=== PATIENT | female | born 1945 | race Hispanic/Latino ===

== ENCOUNTER 2022-01-25 11:52 | Emergency (ER) | payer MEDICARE ==
--- NOTE | 2022-01-25 12:09 | Emergency Department Report ---
ED General Adult HPI - General Chief complaint: Dyspnea/Respdistress Stated complaint: FALL,DIARRHEA Time Seen by Provider: 01/25/22 12:00 Source: EMS Mode of arrival: Stretcher Limitations: Altered Mental Status - History of Present Illness Initial comments: Patient presents by ambulance secondary to fall with hip pain. EMS was called as the patient had fallen from a standing position. She did hit the door and landed on her right hip. She is complaining of right hip pain. There was a report of diarrhea, although the patient states that this is not a problem for her. She admits that she has had diarrhea but she is more concerned about the right hip pain. She states that she did not hit her head or lose consciousness. Family had reported that she did hit her head. Regardless, she is not anticoagulated. Patient denies headache or neck pain. She denies back pain. She has no chest or abdominal pain. Pain in the right hip is constant and worse with any kind of movement. Paramedics state that the patient seemed to be more tender in the right but they did not appreciate any deformity. - Related Data Previous Rx's Medication Instructions Recorded Last Taken Type Levothyroxine [Synthroid] 50 mcg PO QAM #30 tablet 02/13/15 Unknown Rx Metoprolol [Lopressor TAB] 25 mg PO BID #60 tablet 02/13/15 Unknown Rx amLODIPine [Norvasc] 5 mg PO DAILY #30 tab 02/13/15 Unknown Rx lisinopriL [Zestril TAB] 20 mg PO QDAY #30 tablet 02/13/15 Unknown Rx Allergies Allergy/AdvReac Type Severity Reaction Status Date / Time Penicillins Allergy Unknown Verified 02/13/15 11:34 ED Review of Systems ROS: Stated complaint: FALL,DIARRHEA Other details as noted in HPI Comment: All other systems reviewed and negative Constitutional: denies: fever Eyes: denies: vision change ENT: denies: throat pain Respiratory: denies: cough Cardiovascular: denies: chest pain Endocrine: denies: unexplained weight loss Gastrointestinal: as per HPI, diarrhea. denies: abdominal pain Genitourinary: denies: dysuria Musculoskeletal: as per HPI. denies: back pain Skin: denies: rash Neurological: denies: headache Hematological/Lymphatic: denies: easy bruising ED Past Medical Hx - Past Medical History Previous Medical History?: Yes Hx Hypertension: Yes Hx Dementia: Yes Additional medical history: hypothyroid. depression - Surgical History Additional Surgical History: hysterectomy - Family History Family history: hypertension - Social History Smoking Status: Never Smoker Substance Use Type: Alcohol - Medications Home Medications: Home Medications Medication Instructions Recorded Confirmed Last Taken Type Levothyroxine [Synthroid] 50 mcg PO QAM #30 tablet 02/13/15 Unknown Rx Metoprolol [Lopressor TAB] 25 mg PO BID #60 tablet 02/13/15 Unknown Rx amLODIPine [Norvasc] 5 mg PO DAILY #30 tab 02/13/15 Unknown Rx lisinopriL [Zestril TAB] 20 mg PO QDAY #30 tablet 02/13/15 Unknown Rx ED Physical Exam - General Limitations: Altered Mental Status (Chronic dementia), Other (Pulse ox noted and normal) General appearance: alert, in no apparent distress, other (Appears to be uncomfortable. Pleasantly confused) - Head Head exam: Present: atraumatic, normocephalic, normal inspection - Eye Eye exam: Present: normal appearance. Absent: EOMI - ENT ENT exam: Present: normal orophraynx, normal external ear exam - Neck Neck exam: Present: normal inspection. Absent: tenderness, meningismus - Respiratory Respiratory exam: Present: normal lung sounds bilaterally. Absent: respiratory distress - Cardiovascular Cardiovascular Exam: Present: regular rate, normal rhythm - GI/Abdominal GI/Abdominal exam: Present: soft. Absent: distended - Extremities Exam Extremities exam: Present: normal capillary refill, other (Diffuse tenderness with palpation over the right lateral hip. There is no obvious deformity. Leg is not shortened or rotated. She has good range of motion passively.) - Back Exam Back exam: Absent: CVA tenderness (R), CVA tenderness (L) - Neurological Exam Neurological exam: Present: alert, altered, CN II-XII intact. Absent: motor sensory deficit - Psychiatric Psychiatric exam: Present: normal affect, normal mood - Skin Skin exam: Present: warm, dry ED Course Vital Signs 01/25/22 01/25/22 11:57 12:48 Temperature 96.4 F L Pulse Rate 97 H Respiratory 16 Rate Blood Pressure 165/74 [Right] O2 Sat by Pulse 98 99 Oximetry - Reevaluation(s) Reevaluation #1: 01/25/22 12:09 EMS was met. X-rays were ordered. Reevaluation #2: 01/25/22 13:04 X-rays are noted and the patient was discharged. ED Medical Decision Making - Radiology Data Radiology results: report reviewed - Medical Decision Making Patient presented by ambulance with right hip pain after a fall. This was a ground-level fall. There is no evidence of hip fracture. She did not have suggestion of pelvis fracture. 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 She does not appear to be septic or toxic. She has had hip injuries before. Patient was treated symptomatically and referred. There was a family report that she had struck her head, but there was no loss of consciousness. She was not vomiting. She has no headache. There is no visible sign of head trauma. She is not anticoagulated. I do not believe CT is indicated at this time. Critical Care Time: No Critical care attestation.: If time is entered above; I have spent that time in minutes in the direct care of this critically ill patient, excluding procedure time. ED Disposition Clinical Impression: Fall Qualifiers: Encounter type: initial encounter Qualified Code(s): W19.XXXA - Unspecified fall, initial encounter Contusion of right hip Qualifiers: Encounter type: initial encounter Qualified Code(s): S70.01XA - Contusion of right hip, initial encounter Disposition: HOME / SELF CARE / HOMELESS Is pt being admited?: No Condition: Stable Instructions: Contusion, [id number], How to Use Cold Therapy, [id number] Additional Instructions: Apply ice to sore areas. Drink plenty of water. Return for problems. Follow- up with your regular doctor for recheck and further management. Referrals: JAMEL RESTREPO MD [Primary Care Provider] - 3-5 Days KAREEN DOWLING MD [Staff Physician] - 3-5 Days
--- NOTE | 2022-01-25 12:53 | XRay Report ---
RIGHT HIP 3 VIEWS INDICATION: fall. COMPARISON: None. IMPRESSION: No acute osseous or soft tissue abnormality. 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 Approximate 2 cm area of avascular necrosis in the superior femoral head is al so identified. If further evaluation is needed MRI could be obtained. Signer Name: Roberto Armstrong Jr, MD Signed: 01/25/2022 12:49 PM Workstation Name: [id number]
--- NOTE | 2022-01-25 14:15 | Cat Scan Report ---
CT HEAD WITHOUT CONTRAST INDICATION / CLINICAL INFORMATION: head injury on thinners. TECHNIQUE: Axial imaging performed from the skull apex through the skull base without the use of cont rast. Sagittal and coronal reformatted images. All CT scans at this location are performed using CT dose reduction for ALARA by means of automated exposure control. COMPARISON: None available. FINDINGS: CEREBRAL PARENCHYMA: No acute parenchymal abnormality is identified. There is moderate diffuse cortic al volume loss and mild nonspecific chronic white matter changes. No chronic infarct is identified. HEMORRHAGE: None. EXTRA-AXIAL SPACES: Normal in size and morphology for the patient's age. VENTRICULAR SYSTEM: Normal in size and morphology for the patient's age. MIDLINE SHIFT OR HERNIATION: None. CEREBELLUM / BRAINSTEM: No significant abnormality. CALVARIUM: No significant abnormality. ORBITS: Normal as visualized. PARANASAL SINUSES / MASTOID AIR CELLS: Normal as visualized. SOFT TISSUES of HEAD: No significant abnormality. ADDITIONAL FINDINGS: None. IMPRESSION: No acute intracranial abnormality. Volume loss and chronic white matter changes which appear appropri ate for this person's age. Signer Name: Roberto Armstrong Jr, MD Signed: 01/25/2022 2:10 PM Workstation Name: [id number]
[2022-01-25 15:38] VITALS: BP 158/72
== END 2022-01-25 15:40 | disposition home or self-care (01) ==
LOC: ED 11:52
DX: S70.01XA Contusion of right hip, initial encounter (principal); I10 Essential (primary) hypertension; F32.9 Major depressive disorder, single episode, unspecified; Z90.710 Acquired absence of both cervix and uterus; Z88.0 Allergy status to penicillin; Z79.899 Other long term (current) drug therapy; W18.39XA Other fall on same level, initial encounter; Y93.89 Activity, other specified; Y92.89 Other specified places as the place of occurrence of the external cause; Y99.8 Other external cause status
CPT/HCPCS: 70450; 99284

== ENCOUNTER 2022-05-05 04:25 | Observation (INO) | payer MEDICARE ==
[2022-05-05 05:33] LABS: Basophils # (Auto) 0.1 K/mm3 (0.0-0.1); Basophils % (Auto) 1.1 % (0.0-1.8); Eosinophils # (Auto) 0.2 K/mm3 (0.0-0.4); Eosinophils % (Auto) 1.8 % (0.0-4.3); Hematocrit 40.6 % (30.3-42.9); Hemoglobin 13.2 gm/dl (10.1-14.3); Lymphocytes # (Auto) 0.6 K/mm3 (1.2-5.4); Lymphocytes % (Auto) 6.6 % (13.4-35.0); Mean Corpuscular HGB Conc 32 % (30-34); Mean Corpuscular Volume 98 fl (79-97); Monocytes # (Auto) 0.5 K/mm3 (0.0-0.8); Monocytes % (Auto) 5.3 % (0.0-7.3); Platelet Count 547 K/mm3 (140-440); Red Blood Count 4.14 M/mm3 (3.65-5.03); Red Cell Distribution Width 14.4 % (13.2-15.2)
[2022-05-05 05:41] LABS: Blood Urea Nitrogen 23 mg/dL (7-17); Calcium 9.5 mg/dL (8.4-10.2); Hemolysis Index 3
[2022-05-05 05:54] LABS: BUN/Creatinine Ratio 58
--- NOTE | 2022-05-05 06:54 | Cat Scan Report ---
CT HEAD WITHOUT CONTRAST INDICATION / CLINICAL INFORMATION: Head injury. TECHNIQUE: CT head was performed without administration of intravenous contrast. All CT scans at this location are performed using CT dose reduction for ALARA by means of automated exposure control. COMPARISON: CT head 01/25/2022 FINDINGS: CEREBRAL HEMISPHERES: There is no evidence of large territorial infarction or significant abnormality of black-white matter differentiation. Ventricles within normal limits. No midline shift. Basal ciste rns patent. Bilateral basal ganglia calcifications. HEMORRHAGE: None. CEREBELLUM / BRAINSTEM: No significant abnormality. ORBITS: No significant abnormality. SOFT TISSUES: No significant abnormality. SKULL: No significant abnormality. PARANASAL SINUSES / MASTOID AIR CELLS: Normal as visualized. ADDITIONAL FINDINGS: None. IMPRESSION: 1. No acute intracranial abnormality. Signer Name: Mango Monte II, MD Signed: 05/05/2022 6:50 AM Workstation Name: [id number]
--- NOTE | 2022-05-05 07:00 | Cat Scan Report ---
CT CERVICAL SPINE WITHOUT CONTRAST INDICATION / CLINICAL INFORMATION: head injury, fall. TECHNIQUE: Axial CT images were obtained through the cervical spine. Sagittal and coronal reformatted images were produced. All CT scans at this location are performed using CT dose reduction for ALARA by means of automated exposure control. COMPARISON: None available. FINDINGS: MANDIBLE: No significant abnormality of the visualized mandible or TMJs. SKULL BASE: No significant abnormality of the skull base. CRANIOCERVICAL JUNCTION: No significant abnormality of the craniocervical junction. CERVICAL SPINE: Reversal of lordosis is demonstrated with anterolisthesis of C3 on C4 as well as C4 o n C5. Additionally at C4-5, there is partial fusion to fusion of the left facet articulation with the appearance suggesting prior perched facet. Spinous processes of C4-C5 are minimally widened and no i nflammatory stranding. There is severe central stenosis. Sclerotic focus of bone within the left almeida sverse process of C2. SOFT TISSUES: No significant abnormality of soft tissues or musculature. THYROID: No significant abnormality. UPPER CHEST: No significant abnormality of the visualized chest. ADDITIONAL FINDINGS: None. IMPRESSION: 1. No acute fracture. 2. The appearance of C4-5 suggests possible prior injury and prior perched facet with interval fusion . Residual anterolisthesis is demonstrated as well as minimal widening of the spinous processes of C4 and C5. No obvious acute ligamentous injury. If clinical concern for acute ligamentous injury is pre sent, MRI recommended for further evaluation. Signer Name: Mango Monte II, MD Signed: 05/05/2022 6:55 AM Workstation Name: [id number]
[2022-05-05] MEDS ORDERED: SODIUM CHLORIDE 0.9% 500 ML 500 ML IV ONE (07:09)
--- NOTE | 2022-05-05 07:50 | XRay Report ---
LEFT HIP 3 VIEW(S) INDICATION / CLINICAL INFORMATION: fall, hip pain, dementia COMPARISON: None available. FINDINGS: Inferior pubic ramus fracture on the left and possible parasymphyseal superior ramus fracture. The ra mus and symphysis otherwise overshadowed by stool. Left hip appears intact. No widened SI joints. Fla ttening of the superior right femoral head and loss of superior joint space with features of femoral acetabular impingement appear stable. IMPRESSION: 1. Fractures of the left pubic rami are suggested with fracture of the right pubic rami not excluded. CT recommended for further definition of injury. Signer Name: Mango Monte II, MD Signed: 05/05/2022 7:46 AM Workstation Name: [id number]
[2022-05-05 08:04] LABS: Creatine Kinase MB 1.8 ng/mL (0.0-4.0)
[2022-05-05] MEDS ORDERED: TETANUS,DIPH,PERTUSS(ACELL) VACCINE 0.5 ML SYRINGE IM ONE (08:10)
--- NOTE | 2022-05-05 08:10 | Emergency Department Report ---
ED Fall HPI - General Chief Complaint: Head Injury Stated Complaint: GENERALIZED WEAKNESS Time Seen by Provider: 05/05/22 06:34 Source: patient, old records reviewed Mode of arrival: Stretcher Limitations: Other (d) - History of Present Illness Initial Comments: 77-year-old female with a past medical history of dementia, hypertension, hypothyroidism, depression presents to the hospital from home status post fall. Patient presents with a scalp hematoma to the occipital. She cannot provide any details regarding her fall. She is alert and oriented to self, place, but not to year. She cannot recall what happened and how she fell. She complains of pain only to area of scalp impact. She states she has been eating and drinking appropriately without chest pain, shortness of breath, nausea, vomiting, or diarrhea. She complains of ongoing left hip pain. Patient states she lives alone, walks unassisted, and her daughter comes to check on her and assist with her care - Related Data Previous Rx's Medication Instructions Recorded Last Taken Type Levothyroxine [Synthroid] 50 mcg PO QAM #30 tablet 02/13/15 Unknown Rx Metoprolol [Lopressor TAB] 25 mg PO BID #60 tablet 02/13/15 Unknown Rx amLODIPine [Norvasc] 5 mg PO DAILY #30 tab 02/13/15 Unknown Rx lisinopriL [Zestril TAB] 20 mg PO QDAY #30 tablet 02/13/15 Unknown Rx Allergies Allergy/AdvReac Type Severity Reaction Status Date / Time Penicillins Allergy Unknown Verified 02/13/15 11:34 ED Review of Systems ROS: Stated complaint: GENERALIZED WEAKNESS Other details as noted in HPI Comment: All other systems reviewed and negative ED Past Medical Hx - Past Medical History Previous Medical History?: Yes Hx Hypertension: Yes Hx Dementia: Yes Additional medical history: hypothyroid. depression - Surgical History Past Surgical History?: Yes Additional Surgical History: hysterectomy - Social History Smoking Status: Current Every Day Smoker Substance Use Type: None - Medications Home Medications: Home Medications Medication Instructions Recorded Confirmed Last Taken Type Levothyroxine [Synthroid] 50 mcg PO QAM #30 tablet 02/13/15 Unknown Rx Metoprolol [Lopressor TAB] 25 mg PO BID #60 tablet 02/13/15 Unknown Rx amLODIPine [Norvasc] 5 mg PO DAILY #30 tab 02/13/15 Unknown Rx lisinopriL [Zestril TAB] 20 mg PO QDAY #30 tablet 02/13/15 Unknown Rx ED Physical Exam - General Limitations: No Limitations - Other Other exam information: General: No acute distress Head: Posterior scalp hematoma without laceration Eyes: normal appearance ENT: Moist mucous membranes Neck: Normal appearance, no midline tenderness Chest: Clear to auscultation bilaterally CV: Regular rate and rhythm Abdomen: Soft, normal bowel sounds, nontender, nondistended, no rebound or guarding Back: Normal inspection Extremity: Normal inspection, full range of motion. Patient complains with left hip pain rolling to left side. Full range of motion of left hip with passive movement with minimum pain. Full range of motion of right hip. Neuro: Alert O x 2 (not to year), no facial asymmetry, speech clear, no gross motor sensory deficit Psych: Appropriate behavior Skin: No rash ED Course Vital Signs 05/05/22 05/05/22 05/05/22 04:30 07:03 07:31 Temperature 98 F Pulse Rate 99 H 83 Respiratory 18 11 L Rate Blood Pressure 132/76 152/77 O2 Sat by Pulse 99 100 98 Oximetry 05/05/22 05/05/22 05/05/22 07:45 08:01 08:15 Temperature Pulse Rate 80 82 83 Respiratory 17 15 18 Rate Blood Pressure 148/66 138/69 138/69 O2 Sat by Pulse 94 99 94 Oximetry 05/05/22 05/05/22 05/05/22 08:31 08:46 10:02 Temperature Pulse Rate 81 82 79 Respiratory 14 15 19 Rate Blood Pressure 138/69 138/69 138/69 O2 Sat by Pulse 96 97 Oximetry 05/05/22 10:16 Temperature Pulse Rate 70 Respiratory 13 Rate Blood Pressure 127/67 O2 Sat by Pulse Oximetry - Consultations Consultation #1: 05/05/22 10:35 case d/w DR calabrese ortho, no surgery recommended at this time, weightbearing as tolerated and pain management. Consult ordered since patient will be in the ED Medical Decision Making - Lab Data Result diagrams: 05/05/22 05:10 05/05/22 05:10 Lab Results 05/05/22 05/05/22 05/05/22 Range/Units 05:10 05:10 07:14 WBC 9.8 (4.5-11.0) K/mm3 RBC 4.14 (3.65-5.03) M/mm3 Hgb 13.2 (10.1-14.3) gm/dl Hct 40.6 (30.3-42.9) % MCV 98 H (79-97) fl MCH 32 (28-32) pg MCHC 32 (30-34) % RDW 14.4 (13.2-15.2) % Plt Count 547 H (140-440) K/mm3 Lymph % (Auto) 6.6 L (13.4-35.0) % [place] % (Auto) 5.3 (0.0-7.3) % Eos % (Auto) 1.8 (0.0-4.3) % Baso % (Auto) 1.1 (0.0-1.8) % Lymph # (Auto) 0.6 L (1.2-5.4) K/mm3 [place] # (Auto) 0.5 (0.0-0.8) K/mm3 Eos # (Auto) 0.2 (0.0-0.4) K/mm3 Baso # (Auto) 0.1 (0.0-0.1) K/mm3 Seg Neutrophils % 85.2 H (40.0-70.0) % Seg Neutrophils # 8.4 H (1.8-7.7) K/mm3 Sodium 139 (137-145) mmol/L Potassium 4.1 (3.6-5.0) mmol/L Chloride 100.8 (98-107) mmol/L Carbon Dioxide 25 (22-30) mmol/L Anion Gap 17 mmol/L BUN 23 H (7-17) mg/dL Creatinine 0.4 L (0.6-1.2) mg/dL Estimated GFR > 60 ml/min BUN/Creatinine Ratio 58 % Glucose 101 H (65-100) mg/dL Calcium 9.5 (8.4-10.2) mg/dL Total Creatine Kinase 31 (30-135) units/L CK-MB (CK-2) 1.8 (0.0-4.0) ng/mL CK-MB (CK-2) Rel Index 5.8 H (0-4) Troponin T < 0.010 (0.00-0.029) ng/mL Urine Color (Yellow) Urine Turbidity (Clear) Urine pH (5.0-7.0) Ur Specific [place] (1.003-1.030) Urine Protein (Negative) mg/dL Urine Glucose (UA) (Negative) mg/dL Urine Ketones (Negative) mg/dL Urine Blood (Negative) Urine Nitrite (Negative) Urine Bilirubin (Negative) Urine Urobilinogen (<2.0) mg/dL Ur Leukocyte Esterase (Negative) Urine WBC (Auto) (0.0-6.0) /HPF Urine RBC (Auto) (0.0-6.0) /HPF U Epithel Cells (Auto) (0-13.0) /HPF Urine Mucus /HPF 05/05/22 Range/Units Unknown WBC (4.5-11.0) K/mm3 RBC (3.65-5.03) M/mm3 Hgb (10.1-14.3) gm/dl Hct (30.3-42.9) % MCV (79-97) fl MCH (28-32) pg MCHC (30-34) % RDW (13.2-15.2) % Plt Count (140-440) K/mm3 Lymph % (Auto) (13.4-35.0) % [place] % (Auto) (0.0-7.3) % Eos % (Auto) (0.0-4.3) % Baso % (Auto) (0.0-1.8) % Lymph # (Auto) (1.2-5.4) K/mm3 [place] # (Auto) (0.0-0.8) K/mm3 Eos # (Auto) (0.0-0.4) K/mm3 Baso # (Auto) (0.0-0.1) K/mm3 Seg Neutrophils % (40.0-70.0) % Seg Neutrophils # (1.8-7.7) K/mm3 Sodium (137-145) mmol/L Potassium (3.6-5.0) mmol/L Chloride (98-107) mmol/L Carbon Dioxide (22-30) mmol/L Anion Gap mmol/L BUN (7-17) mg/dL Creatinine (0.6-1.2) mg/dL Estimated GFR ml/min BUN/Creatinine Ratio % Glucose (65-100) mg/dL Calcium (8.4-10.2) mg/dL Total Creatine Kinase (30-135) units/L CK-MB (CK-2) (0.0-4.0) ng/mL CK-MB (CK-2) Rel Index (0-4) Troponin T (0.00-0.029) ng/mL Urine Color Yellow (Yellow) Urine Turbidity Clear (Clear) Urine pH 5.0 (5.0-7.0) Ur Specific [place] 1.017 (1.003-1.030) Urine Protein <15 mg/dl (Negative) mg/dL Urine Glucose (UA) Neg (Negative) mg/dL Urine Ketones 20 (Negative) mg/dL Urine Blood Neg (Negative) Urine Nitrite Neg (Negative) Urine Bilirubin Neg (Negative) Urine Urobilinogen 4.0 (<2.0) mg/dL Ur Leukocyte Esterase Neg (Negative) Urine WBC (Auto) 2.0 (0.0-6.0) /HPF Urine RBC (Auto) < 1.0 (0.0-6.0) /HPF U Epithel Cells (Auto) 1.0 (0-13.0) /HPF Urine Mucus Few /HPF - EKG Data -: EKG Interpreted by Me (Right bundle branch) EKG shows normal: sinus rhythm, ST-T waves Rate: normal - EKG Data When compared to previous EKG there are: changes noted - Radiology Data Radiology results: report reviewed CT HEAD WITHOUT CONTRAST INDICATION / CLINICAL INFORMATION: Head injury. TECHNIQUE: CT head was performed without administration of intravenous contrast. All CT scans at this location are performed using CT dose reduction for Stealth10RA by means of automated exposure control. COMPARISON: CT head 01/25/2022 FINDINGS: CEREBRAL HEMISPHERES: There is no evidence of large territorial infarction or significant abnormality of black-white matter differentiation. Ventricles within normal limits. No midline shift. Basal cisterns patent. Bilateral basal ganglia calcifications. HEMORRHAGE: None. CEREBELLUM / BRAINSTEM: No significant abnormality. ORBITS: No significant abnormality. SOFT TISSUES: No significant abnormality. SKULL: No significant abnormality. PARANASAL SINUSES / MASTOID AIR CELLS: Normal as visualized. ADDITIONAL FINDINGS: None. IMPRESSION: 1. No acute intracranial abnormality. CT CERVICAL SPINE WITHOUT CONTRAST INDICATION / CLINICAL INFORMATION: head injury, fall. TECHNIQUE: Axial CT images were obtained through the cervical spine. Sagittal and coronal reformatted images were produced. All CT scans at this location are performed u sing CT dose reducti on for ALARA by means of automated exposure control. COMPARISON: None available. FINDINGS: MANDIBLE: No significant abnormality of the visualized mandible or TMJs. SKULL BASE: No significant abnormality of the skull base. CRANIOCERVICAL JUNCTION: No significant abnormality of the craniocervical junction. CERVICAL SPINE: Reversal of lordosis is demonstrated with anterolisthesis of C3 on C4 as well as C4 on C5. Additionally at C4-5, there is partial fusion to fusion of the left facet articulation with the appearance suggesting prior perched facet. Spinous processes of C4-C5 are minimally widened and no inflammatory stranding. There is severe central stenosis. Sclerotic focus of bone within the left transverse process of C2. SOFT TISSUES: No significant abnormality of soft tissues or musculature. THYROID: No significant abnormality. UPPER CHEST: No significant abnormality of the visualized chest. ADDITIONAL FINDINGS: None. IMPRESSION: 1. No acute fracture. 2. The appearance of C4-5 suggests possible prior injury and prior perched facet with interval fusion. Residual anterolisthesis is demonstrated as well as minimal widening of the spinous processes of C4 and C5. No obvious acute ligamentous injury. If clinical concern for acute ligamentous injury is present, MRI recommended for further evaluation. LEFT HIP 3 VIEW(S) INDICATION / CLINICAL INFORMATION: fall, hip pain, dementia COMPARISON: None available. FINDINGS: Inferior pubic ramus fracture on the left and possible parasymphyseal superior ramus fracture. The ramus and symphysis otherwise overshadowed by stool. Left hip appears intact. No widened SI joints. Flattening of the superior right femoral head and loss of superior joint space with features of femoral acetabular impingement appear stable. IMPRESSION: 1. Fractures of the left pubic rami are suggested with fracture of the right pubic rami not excluded. CT recommended for further definition of injury. CT pelvis wo con INDICATION / CLINICAL INFORMATION: fallk injury. TECHNIQUE: Axial coronal and sagittal images All CT scans at this location are performed using CT dose reduction for ALARA by means of automated exposure control. COMPARISON: None available. FINDINGS: Diffuse osteopenia seen throughout. There are fracture. The sacrum bilaterally with mildly displaced fractures throughout the sacral alar and throughout the sacrum. Extension to the SI joints seen right greater than left. Advanced degenerative change within the right hip with significant joint space narrowing. Fractures of the superior and inferior pubic rami with diffuse fracture deformity throughout the pubic symphysis thickening of the distal sigmoid colon and rectal wall. IMPRESSION: 1. Diffuse fracture. The sacral alar with extension into the SI joints consistent with significant sacral insufficiency type fractures with displacement 2. Bilateral inferior and superior pubic rami fractures with coronary fracture deformity throughout the pubic symphysis. Advanced degenerative change throughout the pubic symphysis 3. Advanced degenerative change in lower lumbar spine 4. Marked thickening of the distal sigmoid colon and rectal wall. Clinical correlation and follow- up. CT lumbar spine wo con INDICATION / CLINICAL INFORMATION: 77 years Female; fallk injury. TECHNIQUE: Axial CT images of the lumbar spine were obtained. Sagittal and coronal reformatted images were produced. All CT scans at this location are performed using CT dose reduction for ALARA by means of automated exposure control. COMPARISON: None available. FINDINGS: POST-SURGICAL CHANGES: None. ALIGNMENT: Significant levoscoliosis seen with apex at L3-4. VERTEBRAE: Significant, bilateral sacral insufficiency type fractures are identified-left more prominent than right. Significant comminution seen, particularly in the left sacral alar regions There is also a fracture at the S2/S3 region of the sacrum in the midline with 3 mm of displacement seen along the anterior sacral wall. Note, the posterior sacral wall of this region is largely intact. Superior endplate compression seen at L1 Modic type III endplate changes seen rightward of midline at L3-4 and along the superior endplate of L1 leftward of midline. [id number] ANALYSIS: L1-2: Perhaps minimal disc bulge. Small foraminal disc protrusion on the left. No significant sequela. L2-3: Mild to moderate disc bulge and moderate facet hypertrophy. Mild to moderate canal narrowing. Moderate foraminal narrowing on the right. L3-4: Mild to moderate disc bulge and moderate facet hypertrophy on the right. Mild on the left. Mild to moderate canal narrowing. L4-5: Moderate disc bulge. Moderate to marked facet hypertrophy on the left and moderate on the right. Ligamentum flavum hypertrophy. High-grade canal and subarticular zone narrowing suspected. Moderate foraminal narrowing bilaterally, greater on the left. L5-S1: Mild disc bulge and/or spondylosis. Moderate to marked facet hypertrophy on the left and [id number] on the right. Moderate canal and left subarticular zone narrowing. Moderate osseous foraminal narrowing on the left with encroachment upon and mild flattening of the left L5 nerve. PARASPINAL SOFT TISSUES: No significant abnormality. ADDITIONAL FINDINGS: None. IMPRESSION: 1. Multiple, severe sacral fractures identified, as described above. 2. Superior endplate compression injury suggested at L1 leftward of midline. 3. Significant, multilevel degenerative changes as described above. Most marked findings appear to be at L4-5, followed by L5-S1. Please correlate with dermatomal distribution of patient's symptoms, if present. - Medical Decision Making 77-year-old female presents to the hospital with unwitnessed fall. Circumstances surrounding fall unavailable and patient cannot recall doing to dementia. It is unclear if patient had syncope or near syncopal episode. Imaging in the ED identified multiple pelvic fractures. Case discussed with orthopedic surgeon who does not require surgery at this time. Consult ordered. Patient will be admitted to the hospitalist service for further treatment and management such as safe discharge planning life support, physical therapy, pain management, and orthopedic consultation. Patient will be admitted to telemetry since it is unclear if patient had a cardiac event as the cause of fall/near syncope. IV fluids initiated for mild dehydration as indicated by elevated BUN to creatinine ratio. Other labs including urine are unremarkable. tetanus ordered Critical Care Time: No Critical care attestation.: If time is entered above; I have spent that time in minutes in the direct care of this critically ill patient, excluding procedure time. ED Disposition Clinical Impression: Fall, Closed head injury, Scalp hematoma, Pelvic fracture, Dementia Disposition: ADMITTED INPATIENT Is pt being admited?: Yes Does the pt Need Aspirin: No Condition: Stable Time of Disposition: 10:35 (admit to hospitalist no multani)
--- NOTE | 2022-05-05 09:19 | XRay Report ---
CHEST 1 VIEW 05/05/2022 7:27 AM INDICATION / CLINICAL INFORMATION: fall, dementia. COMPARISON: None available. FINDINGS: SUPPORT DEVICES: None. HEART / MEDIASTINUM: No significant abnormality. LUNGS / PLEURA: No significant pulmonary or pleural abnormality. No pneumothorax. ADDITIONAL FINDINGS: No significant additional findings. IMPRESSION: 1. No acute findings. Signer Name: Angelo Winston MD Signed: 05/05/2022 9:14 AM Workstation Name: [id number]
--- NOTE | 2022-05-05 09:19 | Cat Scan Report ---
CT pelvis wo con INDICATION / CLINICAL INFORMATION: fallk injury. TECHNIQUE: Axial coronal and sagittal images All CT scans at this location are performed using CT dose reduction for ALARA by means of automated exposure control. COMPARISON: None available. FINDINGS: Diffuse osteopenia seen throughout. There are fracture. The sacrum bilaterally with mildly displaced fractures throughout the sacral alar and throughout the sacrum. Extension to the SI joints seen right greater than left. Advanced degenerative change within the right hip with significant joint space na rrowing. Fractures of the superior and inferior pubic rami with diffuse fracture deformity throughout the pubic symphysis thickening of the distal sigmoid colon and rectal wall. IMPRESSION: 1. Diffuse fracture. The sacral alar with extension into the SI joints consistent with significant sa cral insufficiency type fractures with displacement 2. Bilateral inferior and superior pubic rami fractures with coronary fracture deformity throughout t he pubic symphysis. Advanced degenerative change throughout the pubic symphysis 3. Advanced degenerative change in lower lumbar spine 4. Marked thickening of the distal sigmoid colon and rectal wall. Clinical correlation and follow-up. Signer Name: Angelo Winston MD Signed: 05/05/2022 9:14 AM Workstation Name: [id number]
--- NOTE | 2022-05-05 09:26 | Cat Scan Report ---
CT lumbar spine wo con INDICATION / CLINICAL INFORMATION: 77 years Female; fallk injury. TECHNIQUE: Axial CT images of the lumbar spine were obtained. Sagittal and coronal reformatted images were prod uced. All CT scans at this location are performed using CT dose reduction for ALARA by means of autom ated exposure control. COMPARISON: None available. FINDINGS: POST-SURGICAL CHANGES: None. ALIGNMENT: Significant levoscoliosis seen with apex at L3-4. VERTEBRAE: Significant, bilateral sacral insufficiency type fractures are identified-left more promin ent than right. Significant comminution seen, particularly in the left sacral alar regions There is a lso a fracture at the S2/S3 region of the sacrum in the midline with 3 mm of displacement seen along the anterior sacral wall. Note, the posterior sacral wall of this region is largely intact. Superior endplate compression seen at L1 Modic type III endplate changes seen rightward of midline at L3-4 and along the superior endplate of L1 leftward of midline. [id number] ANALYSIS: L1-2: Perhaps minimal disc bulge. Small foraminal disc protrusion on the left. No significant sequel a. L2-3: Mild to moderate disc bulge and moderate facet hypertrophy. Mild to moderate canal narrowing. Moderate foraminal narrowing on the right. L3-4: Mild to moderate disc bulge and moderate facet hypertrophy on the right. Mild on the left. Mil d to moderate canal narrowing. L4-5: Moderate disc bulge. Moderate to marked facet hypertrophy on the left and moderate on the righ t. Ligamentum flavum hypertrophy. High-grade canal and subarticular zone narrowing suspected. Moderat e foraminal narrowing bilaterally, greater on the left. L5-S1: Mild disc bulge and/or spondylosis. Moderate to marked facet hypertrophy on the left and mild -to-moderate on the right. Moderate canal and left subarticular zone narrowing. Moderate osseous fora berna narrowing on the left with encroachment upon and mild flattening of the left L5 nerve. PARASPINAL SOFT TISSUES: No significant abnormality. ADDITIONAL FINDINGS: None. IMPRESSION: 1. Multiple, severe sacral fractures identified, as described above. 2. Superior endplate compression injury suggested at L1 leftward of midline. 3. Significant, multilevel degenerative changes as described above. Most marked findings appear to be at L4-5, followed by L5-S1. Please correlate with dermatomal distribution of patient's symptoms, if present. Signer Name: Sandeep Umana MD, III Signed: 05/05/2022 9:22 AM Workstation Name: [email or web address]
[2022-05-05 09:28] LABS: Bilirubin,Urine NEG (Negative); Blood,Urine NEG (Negative); Color,Urine Yellow (Yellow); Protein,Urine <15 mg/dL mg/dL (Negative)
[2022-05-05 09:30] LABS: Mucus,Urine FEW /HPF; RBC,Urine < 1.0 /HPF (0.0-6.0)
[2022-05-05] MEDS ORDERED: SODIUM CHLORIDE 0.9% 500 ML 500 ML ONE (10:08)
[2022-05-05] MEDS ORDERED: MORPHINE 4 MG/1 ML INJ IV ONE (10:13)
[2022-05-05] MEDS ORDERED: ONDANSETRON 4 MG/2 ML INJ IV ONE (10:13)
[2022-05-05] MEDS ORDERED: ONDANSETRON 4 MG/2 ML INJ IV PRN ×2 (10:39→12:00)
[2022-05-05] MEDS ORDERED: ACETAMINOPHEN 325 MG TAB PO PRN ×2 (10:39→12:00)
[2022-05-05] MEDS ORDERED: MORPHINE 2 MG/1 ML INJ IV PRN (10:39)
--- NOTE | 2022-05-05 10:48 | Electrocardiograph Report ---
[facility] Test Date: 2022-05-05 Test Time: 04:55:28 Pat Name: BAO GEE Department: Room: Gender: F Language Path: ER : 1945 Requested By: SHEA KHAN Order Number: [id number] Reading MD: James Duenas Measurements Intervals [place] Rate: 83 P: [place]: QRS: 28 QRSD: 158 T: 11 QT: 429 QTc: 505 Interpretive Statements Normal sinus rhythm Right bundle branch block No previous ECG available for comparison Electronically Signed On 05-05-2022 10:48:02 EDT by James Duenas
--- NOTE | 2022-05-05 10:53 | Electrocardiograph Report ---
[facility] Test Date: 2022-05-05 Test Time: 09:51:54 Pat Name: BAO GEE Department: Room: Gender: F Pediatric Np: BRYON : 1945 Requested By: SHEA KHAN Order Number: [id number] Reading MD: James Duenas Measurements Intervals [place] Rate: 72 P: 39 [place]: 201 QRS: 30 QRSD: 158 T: 19 QT: 454 QTc: 499 Interpretive Statements Sinus rhythm Right bundle branch block Compared to ECG 05/05/2022 04:55:28 No significant change Electronically Signed On 05-05-2022 10:53:29 EDT by James Duenas
--- NOTE | 2022-05-05 11:44 | History and Physical Report ---
History of Present Illness History of present illness: HPI: 77-year-old with past medical history of hypertension, dementia, hypothyroidism, depression presenting to the hospital status post fall at home. Patient denied recalling fall. She states that she is unsure if she passed out prior to the fall. She denied any active chest pain, nausea, vomiting, shortness of breath, abdominal pain, peripheral nerve pain. She does endorse head tenderness from her scalp hematoma as well as right hip tenderness. Patient responding to questions appropriately. Follows commands appropriately. Apparently patient does live at home independently and has daughter who checks up on her from time to time. Remainder of ROS negative except for stated above Had a fall on 04/29 when she fell out of bed, seen at [facility]. She was discharged with a wheelchair. Earlier this morning the patient came out bed, got in wheel chair and tried to get up and fell again hitting her head. Patient was here back in January of this year for fall as well. 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 She was discharged from the emergency room with recommendation to follow-up outpatient with imaging findings as it was believed to be a chronic change identified. I discussed at length with the patient's daughter. Daughter stated that she and her granddaughter look after the patient. They would prefer the patient return home and state that they are able to care for her. PMHx: Hypertension, dementia, hypothyroidism, depression PSHx: Hysterectomy FHx: Reviewed noncontributory SHx: Tobacco use-every day smoker ETOH Use-denies Recreational Drug Use-denies lives home with daughter and granddaughter Kaylynn Benitez (daughter) [phone] Medications and Allergies Allergies Allergy/AdvReac Type Severity Reaction Status Date / Time Penicillins Allergy Unknown Verified 02/13/15 11:34 Home Medications Medication Instructions Recorded Confirmed Last Taken Type Levothyroxine [Synthroid] 50 mcg PO QAM #30 tablet 02/13/15 Unknown Rx Metoprolol [Lopressor TAB] 25 mg PO BID #60 tablet 02/13/15 Unknown Rx amLODIPine [Norvasc] 5 mg PO DAILY #30 tab 02/13/15 Unknown Rx lisinopriL [Zestril TAB] 20 mg PO QDAY #30 tablet 02/13/15 Unknown Rx Active Meds: Active Medications Acetaminophen (Acetaminophen 325 Mg Tab) 650 mg PO Q4H PRN PRN Reason: Pain MILD(1-3)/Fever >100.5/ROMERO Ondansetron HCl (Ondansetron 4 Mg/2 Ml Inj) 4 mg IV Q8H PRN PRN Reason: Nausea And Vomiting Oxycodone/Acetaminophen (Oxycodone /Acetaminophen 5-325mg Tab) 1 tab PO Q6H PRN PRN Reason: Pain, Moderate (4-6) Sodium Chloride (Sodium Chloride 0.9% 10 Ml Flush Syringe) 10 ml IV BID MARC Sodium Chloride (Sodium Chloride 0.9% 10 Ml Flush Syringe) 10 ml IV PRN PRN PRN Reason: LINE FLUSH Sodium Chloride (Sodium Chloride 0.9% 10 Ml Flush Syringe) 10 ml IV BID MARC Sodium Chloride (Sodium Chloride 0.9% 10 Ml Flush Syringe) 10 ml IV PRN PRN PRN Reason: LINE FLUSH Exam - Physical Exam Narrative exam: Physical Exam: VITAL SIGNS: Reviewed. GENERAL: The patient appears normally developed, Vital signs as documented. Elderly disheveled female HEAD: Scalp hematoma noted. EYES: Pupils are equal. Extraocular motions intact. EARS: Hearing grossly intact. MOUTH: Poor oral hygiene/dentition. NECK: No adenopathy, no JVD. CHEST: Chest with clear breath sounds bilaterally. No wheezes, rales, or rhonchi. CARDIAC: Regular rate and rhythm. S1 and S2, without murmurs, gallops, or rubs. VASCULAR: No Edema. Peripheral pulses normal and equal in all extremities. ABDOMEN: Soft, non tender and non distended. No rebound or guarding, and no masses palpated. Bowel Sounds normal. MUSCULOSKELETAL: Pain in right hip. NEUROLOGIC EXAM: Alert and oriented x 3. no focal sensory or strength deficits. PSYCHIATRIC: Mild memory impairment noted. SKIN: detail exam as documented in skin assessment - Constitutional Vitals: Temp Pulse Resp BP Pulse Ox 98 F 70 13 127/67 97 05/05/22 04:30 05/05/22 10:16 05/05/22 10:16 05/05/22 10:16 05/05/22 08:46 HEART Score - HEART Score Troponin: Troponin T < 0.010 ng/mL (0.00-0.029) 05/05/22 07:14 Results - Labs CBC & Chem 7: 05/05/22 05:10 05/05/22 05:10 Labs: Laboratory Last Values WBC 9.8 K/mm3 (4.5-11.0) 05/05/22 05:10 RBC 4.14 M/mm3 (3.65-5.03) 05/05/22 05:10 Hgb 13.2 gm/dl (10.1-14.3) 05/05/22 05:10 Hct 40.6 % (30.3-42.9) 05/05/22 05:10 MCV 98 fl (79-97) H 05/05/22 05:10 MCH 32 pg (28-32) 05/05/22 05:10 MCHC 32 % (30-34) 05/05/22 05:10 RDW 14.4 % (13.2-15.2) 05/05/22 05:10 Plt Count 547 K/mm3 (140-440) H 05/05/22 05:10 Lymph % (Auto) 6.6 % (13.4-35.0) L 05/05/22 05:10 [place] % (Auto) 5.3 % (0.0-7.3) 05/05/22 05:10 Eos % (Auto) 1.8 % (0.0-4.3) 05/05/22 05:10 Baso % (Auto) 1.1 % (0.0-1.8) 05/05/22 05:10 Lymph # (Auto) 0.6 K/mm3 (1.2-5.4) L 05/05/22 05:10 [place] # (Auto) 0.5 K/mm3 (0.0-0.8) 05/05/22 05:10 Eos # (Auto) 0.2 K/mm3 (0.0-0.4) 05/05/22 05:10 Baso # (Auto) 0.1 K/mm3 (0.0-0.1) 05/05/22 05:10 Seg Neutrophils % 85.2 % (40.0-70.0) H 05/05/22 05:10 Seg Neutrophils # 8.4 K/mm3 (1.8-7.7) H 05/05/22 05:10 Sodium 139 mmol/L (137-145) 05/05/22 05:10 Potassium 4.1 mmol/L (3.6-5.0) 05/05/22 05:10 Chloride 100.8 mmol/L (98-107) 05/05/22 05:10 Carbon Dioxide 25 mmol/L (22-30) 05/05/22 05:10 Anion Gap 17 mmol/L 05/05/22 05:10 BUN 23 mg/dL (7-17) H 05/05/22 05:10 Creatinine 0.4 mg/dL (0.6-1.2) L 05/05/22 05:10 Estimated GFR > 60 ml/min 05/05/22 05:10 BUN/Creatinine Ratio 58 % 05/05/22 05:10 Glucose 101 mg/dL (65-100) H 05/05/22 05:10 Calcium 9.5 mg/dL (8.4-10.2) 05/05/22 05:10 Total Creatine Kinase 31 units/L (30-135) 05/05/22 07:14 CK-MB (CK-2) 1.8 ng/mL (0.0-4.0) 05/05/22 07:14 CK-MB (CK-2) Rel Index 5.8 (0-4) H 05/05/22 07:14 Troponin T < 0.010 ng/mL (0.00-0.029) 05/05/22 07:14 Urine Color Yellow (Yellow) 05/05/22 Unknown Urine Turbidity Clear (Clear) 05/05/22 Unknown Urine pH 5.0 (5.0-7.0) 05/05/22 Unknown Ur Specific [place] 1.017 (1.003-1.030) 05/05/22 Unknown Urine Protein <15 mg/dl mg/dL (Negative) 05/05/22 Unknown Urine Glucose (UA) Neg mg/dL (Negative) 05/05/22 Unknown Urine Ketones 20 mg/dL (Negative) 05/05/22 Unknown Urine Blood Neg (Negative) 05/05/22 Unknown Urine Nitrite Neg (Negative) 05/05/22 Unknown Urine Bilirubin Neg (Negative) 05/05/22 Unknown Urine Urobilinogen 4.0 mg/dL (<2.0) 05/05/22 Unknown Ur Leukocyte Esterase Neg (Negative) 05/05/22 Unknown Urine WBC (Auto) 2.0 /HPF (0.0-6.0) 05/05/22 Unknown Urine RBC (Auto) < 1.0 /HPF (0.0-6.0) 05/05/22 Unknown U Epithel Cells (Auto) 1.0 /HPF (0-13.0) 05/05/22 Unknown Urine Mucus Few /HPF 05/05/22 Unknown Assessment and Plan Assessment and plan: Assessment #Syncope #Fall #Dehydrated. #Pelvic fracture #Sacral fracture #Closed head injury #Scalp hematoma #Dementia #Essential hypertension #Hypothyroidism #Thrombocytosis # Nicotine Abuse. - Cigarettes? Active smoker - behavioral health counseling administered which included education on benefits of smoking cessation as well as options for quitting. +15 min. #Advance care planning Disease education conducted, care plan discussed, diagnoses discussed, prognosis discussed, patient is full code, patient acknowledges understanding and agree with care plan, +30 minutes. Plan: - Orthopedic surgery consultation, will follow recommendation - orthostatics (if possible) ordered. - s/p 500 cc bolus, will give additional volume after orthostatics. 1 NS ordered - home anti-HTN (amlodipine 5 mg p.o. daily, lisinopril 20 mg p.o. daily, metoprolol 25 mg p.o. twice daily ) will be held for now. Will resume tomorrow if blood pressure becomes elevated. - resume home levothyroxine 50 mg p.o. every morning -Pain control with oxycodone and Tylenol. Pain currently very minimal. We will hold off on morphine or Dilaudid at this time. DVT prophylaxis Lovenox 40 mg subq daily - PT/OT consulted for evaluation in light of fall - CM consulted for discharge planning, [facility] set up. Dispo: Admitted to telemetry bed. I discussed with the daughter at length. Patient had been seen recently at [facility] and had had similar fracture of hip. Per daughter she would like the patient to come home. Patient daughter and granddaughter typically care for patient. Will work with CM tomorrow for home health care set up. Follow-up PT evaluation
[2022-05-05] MEDS ORDERED: SODIUM CHLORIDE 0.9% 1000 ML 1,000 ML IV SCH (13:45)
[2022-05-05] MEDS ORDERED: ENOXAPARIN 40 MG/0.4 ML INJ SUB-Q SCH (22:00)
[2022-05-06] MEDS ORDERED: LEVOTHYROXINE 50 MCG TAB PO SCH (10:00)
[2022-05-06] MEDS: oxyCODONE /ACETAMINOPHEN 5-325MG TAB PO PRN ×2 (11:05→18:50)
--- NOTE | 2022-05-06 13:19 | Discharge Summary ---
Providers - Providers Date of Admission: 05/05/22 10:39 Date of discharge: 05/06/22 Attending physician: ELLEN FELDER MD 05/05/22 10:34 Consult to Physician [CONS] Urgent Comment: Consulting Provider: MESERET PEREZ Physician Instructions: Reason For Exam: multiple pelvic fractures 05/05/22 11:42 Consult to Case Management [CONS] Routine Services Needed at Discharge: Other Comment:: [facility] with PT vs [place] vs SNF Occupational Therapy Evaluate and Treat [CONS] Routine Comment: Reason For Exam: debility, fall Physical Therapy Evaluation and Treat [CONS] Routine Comment: Reason For Exam: debility, fall Primary care physician: FINANCIAL ANALYSIS ADVISOR Hospitalization Reason for admission: fall Condition: Stable Hospital course: HPI: 77-year-old with past medical history of hypertension, dementia, hypothyroidism, depression presenting to the hospital status post fall at home. Patient denied recalling fall. She states that she is unsure if she passed out prior to the fall. She denied any active chest pain, nausea, vomiting, shortness of breath, abdominal pain, peripheral nerve pain. She does endorse head tenderness from her scalp hematoma as well as right hip tenderness. Patient responding to questions appropriately. Follows commands appropriately. Apparently patient does live at home independently and has daughter who checks up on her from time to time. Remainder of ROS negative except for stated above Had a fall on 04/29 when she fell out of bed, seen at [facility]. She was discharged with a wheelchair. Earlier this morning the patient came out bed, got in wheel chair and tried to get up and fell again hitting her head. Patient was here back in January of this year for fall as well. 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 She was discharged from the emergency room with recommendation to follow-up outpatient with imaging findings as it was believed to be a chronic change identified. I discussed at length with the patient's daughter. Daughter stated that she and her granddaughter look after the patient. They would prefer the patient return home and state that they are able to care for her. Hospital Course: Admitted for hip fracture and syncope. Patient not having further episodes of syncope. Is medically stable for discharge. All vitals stable. orthopedic surgery has no plans for intervention. Per discussion with daughter, fracture happend 1 week ago and patient was already seen by ER and ortho doctor and was discharged home with wheel chair. fall this time was patient attempting to get out of wheel chair at home. Witnessed by daughter. Was not a mechanical fall or syncope. Daughter emphasized she would like the patient to return home. Patient to go home today with instruction to follow up without OP primary care doctor. #Syncope #Fall #Dehydrated. #Pelvic fracture #Sacral fracture #Closed head injury #Scalp hematoma #Dementia #Essential hypertension #Hypothyroidism #Thrombocytosis # Nicotine Abuse. - active smoker - behavioral health counseling administered which included education on benefits of smoking cessation as well as options for quitting. +15 min. #Advance care planning Disease education conducted, care plan discussed, diagnoses discussed, prognosis discussed, patient is full code, patient acknowledges understanding and agree with care plan, +30 minutes. Disposition: 01 HOME / SELF CARE / HOMELESS Final Discharge Diagnosis (Prints w/discharge instructions): hip fracture, scalp hematoma, syncope Time spent for discharge: 25 Core Measure Documentation - Palliative Care Palliative Care/ Comfort Measures: Not Applicable - Core Measures Any of the following diagnoses?: none, history only Exam - Constitutional Vitals: Temp Pulse Resp BP Pulse Ox 98.2 F 80 20 123/66 94 05/06/22 04:30 05/06/22 04:30 05/06/22 04:30 05/06/22 04:30 05/06/22 04:30 Plan Follow up with: PRIMARY CAREMD [Primary Care Provider] - 7 Days
[2022-05-06 20:42] VITALS: BP 133/71
== END 2022-05-07 00:40 | disposition home or self-care (01) ==
LOC: ED 04:25 → INTOOBSV 10:39 → 4A 10:39
PROVIDERS: ADMIT Internal Medicine; ATTEND Internal Medicine
DX: S32.9XXA Fracture of unspecified parts of lumbosacral spine and pelvis, initial encounter for closed fracture (principal); S32.502A Unspecified fracture of left pubis, initial encounter for closed fracture; S32.10XA Unspecified fracture of sacrum, initial encounter for closed fracture; S00.03XA Contusion of scalp, initial encounter; S09.90XA Unspecified injury of head, initial encounter; F03.90 Unspecified dementia, unspecified severity, without behavioral disturbance, psychotic disturbance, mood disturbance, and anxiety; R55 Syncope and collapse; E86.0 Dehydration; I10 Essential (primary) hypertension; E03.9 Hypothyroidism, unspecified; D75.839 Thrombocytosis, unspecified; F17.200 Nicotine dependence, unspecified, uncomplicated; F32.9 Major depressive disorder, single episode, unspecified; Z79.899 Other long term (current) drug therapy; Z98.890 Other specified postprocedural states; Z23 Encounter for immunization; Z90.710 Acquired absence of both cervix and uterus; W19.XXXA Unspecified fall, initial encounter; Y92.89 Other specified places as the place of occurrence of the external cause; Y93.89 Activity, other specified; Y99.8 Other external cause status
CPT/HCPCS: 36415; 70450; 71045; 72125; 72131; 72192; 73502; 80048; 81001; 82550; 82553; 84484; 85025; 90715; 93005; 96374; 96375; 99285; G0008; G0378; J2270; J2405; J7040; 90471